=== PATIENT | female | born 1985 | race Caucasian/White ===

== ENCOUNTER 2019-12-26 13:39 | Outpatient (CLI) | payer OTHER, SELFPAY ==
--- NOTE | ~2019-12-26 | XR_ITS ---
XR chest 2V DATE: 12/26/2019 14:01 INDICATION: Cough, fever, shortness of breath TECHNIQUE: PA and lateral views COMPARISON: 09/18/2017 two-view chest 09/18/2017 CT pulmonary scan 10/18/2017 CT chest high resolution scan FINDINGS: Normal heart size. The lungs are clear of infiltrate or consolidation. No pleural effusion or pulmonary vascular congestion or pneumothorax. No hilar or mediastinal enlargement. IMPRESSION: No active cardiopulmonary disease Reviewed, dictated and finalized at location B.
== END 2019-12-26 13:40 | disposition home or self-care (01) ==
LOC: ANHIMG 13:47
PROVIDERS: PCP Family Medicine; Visit Provider Physician Assistant Medical
DX: R05 Cough (principal); J40 Bronchitis, not specified as acute or chronic; R06.02 Shortness of breath
CPT/HCPCS: 71046